=== PATIENT | male | born 1995 | race Caucasian/White ===

== ENCOUNTER 2018-01-02 00:57 | Emergency (ER) | payer OTHER ==
[2018-01-02] MEDS: LIDOCAINE 2% 20 ML VIAL. IJ ×2 (01:30)
[2018-01-02] MEDS: oxyCODONE/APAP 5/325 1 TAB TABLET PO ×2 (01:41)
[2018-01-02] MEDS: DIPHTH,PERTUSS(ACELL),TET TOX 0.5 ML DISP.SYRIN. VAX IM ×2 (01:41)
== END 2018-01-02 03:30 | disposition home or self-care (01) ==
LOC: ER 00:57
DX: S61.214A Laceration without foreign body of right ring finger without damage to nail, initial encounter (principal); J45.909 Unspecified asthma, uncomplicated; Z88.2 Allergy status to sulfonamides; W01.198A Fall on same level from slipping, tripping and stumbling with subsequent striking against other object, initial encounter; Y93.89 Activity, other specified; Y92.89 Other specified places as the place of occurrence of the external cause; Y99.8 Other external cause status
CPT/HCPCS: 12004; 73130; 90471; 90715; 99284-25

== ENCOUNTER 2018-01-09 07:49 | Emergency (ER) | payer OTHER ==
[2018-01-09] MEDS: HYDROcodone/APAP 5/325MG 1 TAB TABLET PO ×2 (08:09)
[2018-01-09] MEDS ORDERED: HYDROcodone/APAP 5/325MG 1 TAB TABLET PO ×2 (08:15)
== END 2018-01-09 08:25 | disposition home or self-care (01) ==
LOC: ER 07:49
DX: S61.215D Laceration without foreign body of left ring finger without damage to nail, subsequent encounter (principal); J45.909 Unspecified asthma, uncomplicated; Z88.2 Allergy status to sulfonamides; X58.XXXD Exposure to other specified factors, subsequent encounter
CPT/HCPCS: 99282

== ENCOUNTER 2021-06-10 09:59 | Emergency (ER) | payer OTHER ==
[~2021-06-10] VITALS: Ht 190.5 cm; Wt 146.3 kg
[~2021-06-10 09:59] MED LIST: HYDR-3164 PO
[2021-06-10 10:36] VITALS: BP 161/102
--- NOTE | 2021-06-10 11:14 | ED.ADGEN ---
Past Medical History Past Medical History: Anxiety, Asthma, Hypertension, Seizure Past Surgical History: No Surgical History Smoking Status: Never Smoker Alcohol Use: None Drug Use: None General Adult EDM: Chief Complaint: COUGH HPI: HPI: Patient is a 25 year old male who presents emergency department with complaints of waking up with sweats and chills in the middle the night, dry cough, postnasal drainage, runny nose, fatigue, and generalized weakness. Patient states he feels like his sense of smell is decreased and he has a an abnormal taste in his mouth. He denies any known exposure to COVID-19. Patient states he has not been immunized against illness. Patient denies any chest pain, wheezing, sore throat, abdominal pain, nausea, vomiting, diarrhea, or rash. He currently denies any pain. Review of Systems: Review of Systems: Complete ROS is negative unless otherwise noted in HPI. Allergies: Allergies: Allergies Coded Allergies Type Severity Reaction Last Updated Verified Sulfa (Sulfonamide Antibiotics) Allergy Intermediate Diarrhea 01/02/18 Yes Physical Exam: PE: See Above constitutional: Well developed, well nourished, no acute distress, non-toxic appearance, obese. [] HENT: Normocephalic, atraumatic, bilateral external ears normal, nose congested Eyes: PERRLA, EOMI, conjunctiva normal, no discharge. [] Neck: Normal range of motion, no stridor. [] Cardiovascular:Heart rate regular rhythm Lungs & Thorax: Respirations even and unlabored, no retractions, no respiratory distress Skin: Warm, dry, no erythema, no rash. [] Extremities: No cyanosis, ROM intact, no edema. [] Neurologic: Alert and oriented X 3, no focal deficits noted. [] Psychologic: Affect normal, judgement normal, mood normal. [] Current Patient Data: Labs: Laboratory Tests Test 06/10/21 10:46 SARS-CoV-2 Antigen (Rapid) Positive (NEGATIVE) *A Vital Signs: Vital Signs Date Time Temp Pulse Resp B/P (MAP) Pulse Ox O2 Delivery O2 Flow Rate FiO2 06/10/21 10:36 98.4 85 24 161/102 (105) 98 Room Air 98.4 EKG: EKG: [] Heart Score: C/O Chest Pain: No Radiology/Procedures: Radiology/Procedures: [] Course & Med Decision Making: Course & Med Decision Making Pertinent Labs and Imaging studies reviewed. (See chart for details) 25-year-old male presented emergency department with multiple complaints. Patient symptoms are likely due to COVID-19 infection. Covid test was ordered. Patient was also noted to be hypertensive. He states he has had problems with this with his doctors not put him on medication. I encouraged patient to follow- up with his doctor as he needs further evaluation and more likely medication for his hypertension. Patient was provided with COVID-19 instructions and encouraged to follow them. Patient verbalized an understanding of home care, medications, follow-up, and return to ED instructions and was in agreement with the plan of care. 1255- Patient's COVID-19 test result came back positive. I called the patient on the phone number provided and informed him of his positive results. Dragon Disclaimer: Raul Disclaimer: This electronic medical record was generated, in whole or in part, using a voice recognition dictation system. Departure Departure Impression: Primary Impression: Person under investigation for COVID-19 Additional Impressions: URI (upper respiratory infection) Hypertension Disposition: 01 HOME / SELF CARE / HOMELESS Condition: STABLE Referrals: MERA WEATHERS APRN (PCP) Patient Instructions: Hypertension, [id number], Upper Respiratory Infection, Adult, [id number] Additional Instructions: Alternate Tylenol or ibuprofen as needed for pain/fever. Increase clear fluids. Avoid airway triggers such as smoke, fragrance, dust, and pollen. May take [id number] cough suppressants as needed. Please follow the following COVID-19 instructions, return to the ER if your fever does not respond to Tylenol or ibuprofen or you develop difficulty breathing. Follow up with your doctor for further evaluation of your blood pressure as discussed. You have been tested for or diagnosed with COVID-19. It is an infection caused by a new type of coronavirus. COVID-19 will cause cold-like or mild flu symptoms in most. It can cause more severe symptoms like problems breathing in some. There is no treatment for COVID-19. The body will clear the infection over time. Self-care will help to ease discomfort. Steps to Take: Self-Care Rest as needed. Healthy habits may help you feel better. Steps include: Choose healthy foods including fruits and vegetables. Drink water throughout the day. Get plenty of sleep each night. If you smoke, try to quit. It may ease breathing. Avoid alcohol. Keep Others Healthy The virus can spread to others. Droplets are released every time you sneeze or cough. The droplets can get into the mouth, nose, or eyes of people near you and lead to infection. To lower the chances of spreading COVID-19 to others: Stay at home until your doctor has said it is safe to leave. If you tested positive this will mean staying isolated until both of the following are true: At least 7 days have passed since the start of illness. You are free of fever for at least 72 hours without the use of medicine. During this time: - Avoid public areas, events, or transportation. Do not return to work or school until your doctor has said it is safe to do so. - Call ahead if you need to go to a medical center. Let them know you may have COVID-19. It will help them guide you where to go. They may also ask you to wear a facemask when you come to the office. - If you call for emergency medical services, let them know you may have COVID- 19. While at home: - Try to avoid close contact with others. Stay about 6 feet away. - If possible, spend most of your time in a separate room from others. - Use a face mask if you will be in close contact with others such as sharing a room or vehicle. - Have someone wipe down common surfaces in the home. Use household wood planer every day on areas like doorknobs, counters, or sinks. - Cough or sneeze into a tissue. Throw the tissue away right after use. If a tissue is not available, cough or sneeze into your elbow. - Wash your hands often. Wash them after sneezing or coughing. Use soap and water and wash for at least 20 seconds. Alcohol based hand cesspool cleaner can be used if soap and water is not available. - Do not prepare food for others. Avoid sharing personal items like forks, spoons, or toothbrushes. - Avoid close contact with pets while you are sick. There is no evidence of the virus passing to pets. This is a safety step until more is known about this virus. Isolation can be frustrating. Social interaction can help. Keep in touch with friends and family through phone and tech options. You can still interact with others in your home, just keep a safe distance of about 6 feet. Follow-up: Your doctors office will check in with you to see if there are any changes in your health. You may be asked to keep track of symptoms to share with them. They will also let you know when you are clear to be in public again. Problems to Look Out For: Contact your doctor if your recovery is not going as you expect. Get emergency care if you have problems such as: - Trouble breathing - Nonstop chest pain or pressure - Changes in awareness, confusion, or problems waking - Lips or face have bluish color - Worsening of symptoms If you think you have an emergency, call for emergency medical services right away. As taken from [facility] Problem Qualifiers Additional Impressions: URI (upper respiratory infection) URI type: unspecified URI Qualified Codes: J06.9 - Acute upper respiratory infection, unspecified Hypertension Hypertension type: unspecified Qualified Codes: I10 - Essential (primary) hypertension MITCHELL LEES APRN Jun 10, 2021 11:14
== END 2021-06-10 11:37 | disposition home or self-care (01) ==
LOC: ER 09:59
DX: U07.1 COVID-19 (principal); J06.9 Acute upper respiratory infection, unspecified; I10 Essential (primary) hypertension; J45.909 Unspecified asthma, uncomplicated; Z88.2 Allergy status to sulfonamides
CPT/HCPCS: 87426; 99283